=== PATIENT | male | born 1960 | race Caucasian/White ===

== ENCOUNTER 2018-08-27 08:59 | Inpatient (IN) | payer BC ==
[~2018-08-27] VITALS: Ht 170.2 cm; Wt 87.5 kg
--- NOTE | 2018-08-27 09:07 | NUR ---
Placed in room 2. Placed on hospitalist medical director, blood pressure machine and pulse oximeter. To gown for exam. Side rails up. Report given to Hong LUBIN.
--- NOTE | 2018-08-27 09:08 | NUR ---
Pt AAOx4 presents to ED c/o 02/17 epigastric pain x 2 days relieved by lying flat. Pt denies vomiting/diarrhea. Hx of kidney stone. No other injuries/complaints per pt/noted. Will continue to monitor.
--- NOTE | 2018-08-27 09:09 | NUR ---
RADHA Prather at bedside examining patient.
--- NOTE | 2018-08-27 09:10 | NUR ---
Margo sena in ED - 08/27/18 at 0910 by [email or web address] RADHA Prather at bedside examining patient.
[2018-08-27 09:12] VITALS: BP_SYST 147
[2018-08-27] MEDS ORDERED: ONDANSETRON HCL 4 MG/2 ML VIAL IVP ONE ×2 (09:15→11:00)
[2018-08-27] MEDS ORDERED: MORPHINE 4 MG/ML INJ. SYRINGE IVP ONE ×2 (09:15→10:30)
[2018-08-27 09:30] LABS: BASOPHILS # (AUTO) 0.2 K/uL (0.0-0.2); BASOPHILS % (AUTO) 1.9 % (0.0-2.0); EOSINOPHILS # (AUTO) 0.1 K/uL (0.0-0.4); EOSINOPHILS % (AUTO) 0.6 % (0.0-4.0); HEMATOCRIT 42.5 % (36-54); HEMOGLOBIN 14.2 g/dL (14.0-18.0); LYMPHOCYTES # (AUTO) 0.8 K/uL (1.0-5.5); LYMPHOCYTES % (AUTO) 7.9 % (20.5-51.5); MEAN CORPUSCULAR HEMOGLOBIN 29 pg (27-31); MEAN CORPUSCULAR HGB CONC 34 % (32-36); MEAN CORPUSCULAR VOLUME 88 fL (79.0-98.0); MONOCYTES # (AUTO) 0.9 K/uL (0.0-1.0); MONOCYTES % (AUTO) 9.5 % (1.7-9.3); NEUTROPHILS # (AUTO) 7.8 K/uL (1.8-7.7); NEUTROPHILS % (AUTO) 80.1 % (40.0-70.0); PLATELET COUNT (AUTO) 157 K/uL (130-430); RED BLOOD CELL COUNT(AUTO) 4.86 MIL/uL (4.2-6.2); RED CELL DISTRIBUTION WIDTH 12.3 % (9.0-15.0); WHITE BLOOD COUNT (AUTO) 9.8 K/uL (4.8-10.8)
[2018-08-27 09:43] LABS: ANION GAP 9 (5-15); CALCIUM 9.3 mg/dL (8.4-11.0); CHLORIDE 105 mmol/L (98-107); CREATININE 1.05 mg/dL (0.55-1.30); GLUCOSE 125 mg/dL (70-99); POTASSIUM 4.1 mmol/L (3.5-5.1); SODIUM SERUM 141 mmol/L (136-145); UREA NITROGEN, BLOOD 17 mg/dL (8-21)
[2018-08-27 09:44] LABS: GFR AFRICAN AMERICAN 93 mL/min (>90)
[2018-08-27] MEDS ORDERED: IOHEXOL 350 mgI/mL, 150 ML INFUS..BTL IV ONE (09:49)
[2018-08-27 09:52] LABS: ALANINE AMINOTRANSFERASE 49 U/L (12-78); ALBUMIN 3.7 g/dL (3.4-4.8); ASPARTATE AMINOTRANSFERASE 24 U/L (10-37); LIPASE 102 U/L (73-393); TOTAL BILIRUBIN 0.4 mg/dL (0.0-1.0)
[2018-08-27 10:27] LABS: BILIRUBIN,URINE NEGATIVE (NEGATIVE); BLOOD, URINE NEGATIVE (NEGATIVE); CLARITY/URINE CLEAR (CLEAR); COLOR,URINE YELLOW (YELLOW); GLUCOSE,URINE NEGATIVE (NEGATIVE); KETONES,URINE NEGATIVE (NEGATIVE); LEUKOCYTE ESTERASE ,URINE NEGATIVE (NEGATIVE); NITRITE, URINE NEGATIVE (NEGATIVE); PROTEIN URINE NEGATIVE (NEGATIVE); UROBILINOGEN,URINE 0.2 (0.2-1.0)
--- NOTE | 2018-08-27 10:28 | NUR ---
Medication administered. Pt tolerated well. No adverse reactions noted.
[2018-08-27 10:41] LABS: BARBITURATE, URINE NEGATIVE (NEG <=200); BENZODIAZEPINE, URINE NEGATIVE (NEG <=150); CANNABINOID, URINE NEGATIVE (NEG <=50); COCAINE, URINE NEGATIVE (NEG <=150); METHAMPHETAMINES SCREEN,URINE NEGATIVE (NEG <=500); PHENCYCLIDINE SCREEN,URINE NEGATIVE (NEG <=25); UR TRICYCLIC ANTIDEPRESSANTS NEGATIVE (NEG <=300); URINE AMPHETAMINE NEGATIVE (NEG <=500); URINE METHADONE NEGATIVE (NEG <=200); URINE OXYCODONE SCREEN NEGATIVE (NEG <=100); URINE PROPOXYPHENE SCREEN NEGATIVE (NEG <=300)
[2018-08-27 10:42] LABS: OPIATE, URINE POSITIVE (NEG <=100)
[2018-08-27] MEDS ORDERED: MAG HYDROX/AL HYDROX/SIMETH 30 ML, BELLADONNA ALKALOIDS/PHENOBARB 10 ML, LIDOCAINE VISC... PO ONE ×3 (10:45)
[2018-08-27] MEDS ORDERED: DICYCLOMINE HCL 20 MG/2 ML AMP IM ONE (10:45)
[2018-08-27] MEDS ORDERED: LISI-209 PO (11:01)
--- NOTE | 2018-08-27 11:01 | NUR ---
Pt states he is full code
--- NOTE | 2018-08-27 11:01 | NUR ---
Medication reconciliation completed with information provided by pt. Any prior medication reconciliation on file was reviewed and corrected.
[2018-08-27] MEDS ORDERED: fentaNYL CITRATE/PF 100 MCG/2 ML AMP IVP ONE (11:15)
[2018-08-27] MEDS ORDERED: NACL 0.9% 1,000 ML IV ONE (11:15)
--- NOTE | 2018-08-27 11:25 | NUR ---
IV Fluids administered. Fentanyl 25mcg IVP administered. Pt tolerated well. No adverse reactions noted.
[2018-08-27 11:43] LABS: INR 0.9 (0.80-1.20); PROTHROMBIN TIME 9.4 SECS (9.5-12.5)
--- NOTE | 2018-08-27 12:40 | NUR ---
Pt resting comfortably in bed with no signs of distress
[2018-08-27] MEDS ORDERED: HYDROmorphone 2 MG/ML VIAL IVP PRN (14:00)
[2018-08-27 14:30] VITALS: BP_SYST 105
--- NOTE | 2018-08-27 14:30 | NUR ---
ADMISSION NOTE Received patient from ER via christopher, received report from Hong LUBIN. Patient admitted with diagnosis of Intractable Abdominal pain . Patient oriented to hospital routine, call light, toileting and safety-patient verbalized understanding.
--- NOTE | 2018-08-27 15:30 | NUR ---
Opening Note patient resting in bed, awake and alert, stated pain is at a 2/10 at this time and tolerable, oriented patient to room, educated patient on use of call light for assistance, verbalized understanding, call light and bedside within reach, will continue to monitor
--- NOTE | 2018-08-27 15:58 | NUR ---
CONSULTS GENERAL SURGERY INTRACTABLE ABDOMINAL PAIN DR LOPEZ [phone] S/W [facility]
[2018-08-27] MEDS: KCL 20 mEq in D5/0.45NS 1000mL 1,000 ML IV SCH (16:49)
[2018-08-27] MEDS: ONDANSETRON HCL 4 MG/2 ML VIAL IVP PRN (17:00)
--- NOTE | 2018-08-27 17:15 | NUR ---
Dr. Dickey Rounds at this time, ordered abdomen US, patient stated has been NPO since last night
[2018-08-27] MEDS ORDERED: PANTOPRAZOLE SODIUM 40 MG/VIAL (PROTONIX) IVP ONE (17:30)
--- NOTE | 2018-08-27 19:45 | NUR ---
OPENING NOTE Received patient AAOx4, resting in bed. Dr. Gallardo at bedside making rounds. 22G IV to LAC with fluids infusing as ordered. Bed locked to lowest position and call light near. Provided with anti skid sockls. Updated board. Will monitor.
[2018-08-27 20:10] VITALS: BP_SYST 122
[2018-08-27] MEDS: ENOXAPARIN SODIUM 40 MG/0.4 ML SYRINGE SUBCUT SCH (21:34)
--- NOTE | 2018-08-27 23:56 | NUR ---
ROUNDS Midnight V/S results are BP 112/64 and HR 41. Patient reports that he felt a sensation of "bee sting to lovenox injection site" he added that it felt swollen and he looked at it and it wasn't. Presently not stinging nor is it swollen; injection site appears as purplish color at injection site. Will monitor.
[2018-08-28] VITALS (7 sets, daily range): BP systolic 103–134
[2018-08-28] MEDS: HYDROmorphone 1 MG INJ. 1 MG/ML AMPUL IVP PRN ×2 (00:54→04:58)
[2018-08-28] MEDS: ONDANSETRON HCL 4 MG/2 ML VIAL IVP PRN ×2 (01:11→04:57)
[2018-08-28] MEDS: KCL 20 mEq in D5/0.45NS 1000mL 1,000 ML IV SCH ×4 (01:12→20:58)
--- NOTE | 2018-08-28 01:25 | NUR ---
SHARP ABDOMINAL PAIN Patient experienced sudden severe sharp abdominal pain along w/ nausea. He described the pain as sharp acid reflux pain along with feeling chills and cold. He was administered prn pain medication for severe pain and zofran as ordered. His temp was 99.4 and the blanket was removed. Within a few minutes he was feeling relief, he wasn't cold and nausea was subsiding. Will follow-up.
--- NOTE | 2018-08-28 04:30 | NUR ---
ROUNDS Patient resting supine. Vital signs taken, B/P 116/65 and HR 46. Reports moderate pain. Will administer prn medications for moderate pain and nausea. Will monitor.
--- NOTE | 2018-08-28 07:15 | NUR ---
CLOSING NOTE Patient resting in bed, with some discomfort to abdomen. Last prn medication was 2hrs ago and not due. 22G to LAC patent has fluids infusing as ordered. Bed locked to lowest position and call light w/in reach. Introduced morning nurse.
--- NOTE | 2018-08-28 07:30 | NUR ---
report received report received in bedside, will come back for morning assessment and morning medication, bed in the lowest position, two side rails up, educated on benefits of bed alarm but patient refused bed alarm, call light within reach, fall and aspiration precautions in place.
--- NOTE | 2018-08-28 09:20 | NUR ---
ASSESSMENT patient is resting in bed, A&Ox4, assessment completed, educated agricultural economist light system and plan of care, patient verbalized understanding, complaints of discomfort but it is tolerable, no other needs at this time, bed at the lowest position, call light within reach, two side rails up, patient refused bed alarm even after benefits of it explained, fall and aspiration precautions in place.
[2018-08-28] MEDS: PANTOPRAZOLE SODIUM 40 MG/VIAL (PROTONIX) IVP SCH (09:22)
--- NOTE | 2018-08-28 09:22 | NUR ---
Protonix patient is resting in bed, educated on medication use and side effects, patient verbalized understanding and tolerated well, no other needs at this time, bed at the lowest position, call light within reach, two side rails up, patient refused bed alarm even after benefits of it explained, fall and aspiration precautions in place.
--- NOTE | 2018-08-28 10:53 | NUR ---
Nutrition Update Korey Scale 18 noted. Pt admitted for intractable abd pain. Diet: clear liquid BMI: 30.2 kg/m2 RD to follow per nutrition care standards.
--- NOTE | 2018-08-28 11:33 | NUR ---
ROUNDS patient is resting in bed, patient complains of epigastric pain but says it is tolerable that is probably d/t his constipation, no other needs at this time, bed at the lowest position, call light within reach, two side rails up, patient refused bed alarm even after benefits of it explained, fall and aspiration precautions in place.
--- NOTE | 2018-08-28 17:55 | NUR ---
Dr Trinh rounds assessed patient at bedside, talked about possible EGD for tomorrow but wants to check his imaging records first, will endorse to noc shift nurse.
--- NOTE | 2018-08-28 18:55 | NUR ---
closing note patient is resting in bed, family at the bedside, explained to him that tylenol needs to be orders and will be given once it is put in, will endorse report to noc shift nurse, patient complains of epigastric pain but says it is tolerable that is probably d/t his constipation, no other needs at this time, bed at the lowest position, call light within reach, two side rails up, patient refused bed alarm even after benefits of it explained, fall and aspiration precautions in place.
[2018-08-28] MEDS ORDERED: ACETAMINOPHEN 500 MG TABLET PO PRN (19:00)
--- NOTE | 2018-08-28 19:00 | NUR ---
change of shift.pt.presents quiescent affect;calm.pt.inquired if he may shower;i am to f/u re;shower order. pt.presents c/o pain;headache;i am to f/u re;pain mgx.pt.presents iv fluids.general status stable.respiratory status stable@room air.call light/telephone w/in the pt's reach/
--- NOTE | 2018-08-28 20:00 | NUR ---
pt.assessed.v/s assessed;values w/in normal limits.pt.presents requests:medication:pain;headache.i have administered tylenol:ex:1000mg po.to f/u re:medication efficacy per pain mgx protocol.pt.had requested to shower.i have supplied the pt. w/toiletries/towels.p.to submit to egd; in am;.pt.'s diet status to convert to npo:i have present the explination/indication:diet status/procedure.pt.understanding satisfactory.iv;fluids infusing.call light/telephone w/in the pt's reach. Addendum: 08/29/18 at 0222 by Miguel Angel Jerome RN pt.capable to reposition self.
[2018-08-28] MEDS: ENOXAPARIN SODIUM 40 MG/0.4 ML SYRINGE SUBCUT SCH (21:00)
--- NOTE | 2018-08-28 21:00 | NUR ---
pt.has showered.i have administered the 2100p medications.i have changed the iv fluids bag.no c/o pain,nausea. i inquired if the pt.requests socks:post shower pt.stated yes.i have provided the pair new socks. Addendum: 08/29/18 at 0230 by Miguel Angel Jerome RN i have presented the consent;egd;.pt.has signed the consent;i have witnessed the pt's signiture.
--- NOTE | 2018-08-28 22:00 | NUR ---
pt.assessed the pt.presents quiescents affect;calm,somnolent.general status table.respiratory status stable. iv fluids infusing.pt.capable to reposition self.call light/telephone w/in t pt's reach.pt.ca
--- NOTE | 2018-08-29 | NUR ---
pt.assessed.v/s assessed;values w/in normal limits.pt.presents quiescent affect;calm,somnolent. no c/o pain,nausea.general status stable.respiratory status stable.call light/telephone w/in the pt's reach. Addendum: 08/29/18 at 0214 by Miguel Angel Jerome RN pt.capable to reposition self. Addendum: 08/29/18 at 0223 by Miguel Angel Jerome RN diet status converted to npo.i have place the red cone;pt/nsg alert;i have provided the explination;of the red cone.
[2018-08-29 00:47] VITALS: BP_SYST 117
--- NOTE | 2018-08-29 02:00 | NUR ---
pt.assessed.pt.present quiescent affect;calm,somnolent.general status stable.respiratory status stable. iv fluids infusing.pt.capable to reposition self.call light/telephone w/in the pt's reach.
--- NOTE | 2018-08-29 04:00 | NUR ---
pt.assessed pt.presents quiescent affect;calm,somnolent.general status stable.respiratory status stable. iv fluids infusing.pt.capable to reposition self.call light/telephone w/in the pt's reach.
[2018-08-29] MEDS: KCL 20 mEq in D5/0.45NS 1000mL 1,000 ML IV SCH (05:31)
--- NOTE | 2018-08-29 06:30 | NUR ---
pt.assessed.pt.presents quiescent affect;calm,awake.pt.presents no c/o pain,nausea.pt.to submit to egd;; 08/29/18.pt.capable to reposition self.iv fluids infusing.general status stable.respiratory status stable.call light/telephone w/in the pt's reach.
--- NOTE | 2018-08-29 07:30 | NUR ---
A/Ox4. IV on the left AC, #18, infusing D5 1/2 NS at 75ml/hr. NPO at this time. POC is provided. Will continue to monitor.
[2018-08-29 08:00] VITALS: BP_SYST 125
--- NOTE | 2018-08-29 08:15 | NUR ---
Patient is upset that his EGD is delayed and about this hospital's care. He states "the staff has been clueless and running like headless chickens!". Charge nurse is informed.
[2018-08-29] MEDS: PANTOPRAZOLE SODIUM 40 MG/VIAL (PROTONIX) IVP SCH (08:59)
--- NOTE | 2018-08-29 09:55 | NUR ---
AMA: Patient does not wish to proceed with medical care recommended by Dr. Gallardo. Patient given information related to possible complications, up to and including , which could occur as a result of leaving hospital at this time. Patient verbalizes understanding of risks involved leaving against medical advice. Patient has signed AMA form.
--- NOTE | 2018-08-29 10:10 | NUR ---
GI lab is called to inform that patient went AMA. According to Jax from GI Lab, Dr. Trinh is informed.
== END 2018-08-29 09:55 | disposition left against medical advice (07) | DRG 392 ==
LOC: SED 08:59 → SMU 13:58
PROVIDERS: ADMIT Family Medicine; ATTEND Family Medicine
DX: K57.90 Diverticulosis of intestine, part unspecified, without perforation or abscess without bleeding (principal); I10 Essential (primary) hypertension; I34.1 Nonrheumatic mitral (valve) prolapse; Z53.21 Procedure and treatment not carried out due to patient leaving prior to being seen by health care provider; Z87.442 Personal history of urinary calculi
CPT/HCPCS: 36415; 71045; 71275; 76700-TC; 80053; 80307; 81003; 83605; 83690-TC; 84484; 85025; 85610-TC; 85730-TC; 87040-TC; 87086; 93005; 96361; 96372; 96374; 96375; 96376; 99285; C9113; J0500; J1170; J1650; J2001; J2270; J2405; J3010; J7030; Q9967